=== PATIENT | male | born 1975 | race Caucasian/White ===

== ENCOUNTER 2019-09-06 12:52 | Outpatient (REF) | payer BC, SELFPAY ==
[2019-09-06 22:48] LABS: HCT 45.1 % (40.0-50.0); HGB 15.4 g/dL (13.5-17.5); Mean Corp. HGB Concentration 34.1 g/dL (32.0-36.0); Mean Corpuscular Hemoglobin 29.6 pg (27.0-33.0); Mean Corpuscular Volume 86.7 fL (80-95); Mean Platelet Volume 9.5 fL (8.0-11.0); Platelet Count 242 x1000/uL (130-400); RBC Distribution Width 13.4 % (11.8-14.1); White Blood Cell Count 4.18 k/cumm (4.4-10.8)
[2019-09-06 23:31] LABS: ALT 39 U/L (16-63); AST 25 U/L (15-37); Albumin 4.4 g/dL (3.4-5.0); Alkaline Phosphatase 80 U/L (46-116); Anion Gap 10.2 mmol/L (3-11); BUN 13 mg/dL (7-18); Bilirubin, Total 0.5 mg/dL (0.2-1.0); CO2 30.8 mmol/L (21.0-32.0); CREATININE 1.03 mg/dL (0.70-1.30); Calcium 9.3 mg/dL (8.5-10.1); Calculated LDL 112 mg/dL (<100); Chloride 100 mmol/L (98-107); Cholesterol 174 mg/dL (<200); Glucose 84 mg/dL (74-106); HDL Cholesterol 46 mg/dL (40-60); Potassium 4.4 mmol/L (3.5-5.1); Sodium 141 mmol/L (136-145); Total Protein 7.7 g/dL (6.4-8.2); Triglyceride 82 mg/dL (<150)
[2019-09-06 23:45] LABS: Uric Acid 8.2 mg/dL (3.5-7.2)
== END 2019-09-06 13:12 ==
LOC: NCHCN 12:52
PROVIDERS: PCP Internal Medicine; Visit Provider Family Medicine
DX: Z00.00 Encounter for general adult medical examination without abnormal findings (principal); M10.9 Gout, unspecified; N20.0 Calculus of kidney; Z13.220 Encounter for screening for lipoid disorders
CPT/HCPCS: 80053; 80061; 85027; 84550

== ENCOUNTER 2021-10-15 04:31 | Emergency (ER) | payer BC, SELFPAY ==
--- NOTE | 2021-10-15 04:30 | DI.CT_ITS ---
Exam(s) CT RENAL COLIC WO EXAM: CT RENAL COLIC WO CLINICAL HISTORY: right flank pain. TECHNIQUE: Imaging Protocol: Axial computed tomography images with coronal and sagittal reformatted images were created and reviewed. CONTRAST MATERIAL: Noncontrast COMPARISON: No exams were available for comparison FINDINGS: ABDOMEN: Lung Bases: Lungs normal where visualized. Small hiatal hernia. Liver: Moderate fatty infiltration.. No measurable mass. Gallbladder and biliary tract: No radiodense calculus or dilation. Pancreas: Normal density, no calcifications or inflammatory process. Spleen: Normal. Kidneys: Normal size, contour and axis. No radiodense stones or obstructive uropathy. No masses seen. Adrenal glands: No masses seen. Abdominal Aorta: Abdominal portion non-dilated. PELVIS: Bladder: 4 millimeter stone dependent portion of bladder. Symmetric distention, no gross wall thicke greg. Bowel: No obstruction or bowel wall thickening. Peritoneal cavity: No ascites, collection or mesenteric inflammatory response. Bones: Degenerative disc changes L5-S1. IMPRESSION: 4 millimeter stone in the urinary bladder. No additional renal or ureteral calculi. No hydronephros is. RADIATION DOSE DELIVERED: 1,255.39mGy.cm Total DLP DATA REPOSITORY: All CT scans at this facility are submitted to the National Radiology Data Registry (NRDR) Dose Index Registry (DIR) with the [employer] ([employer]). RADIATION OPTIMIZATION: All CT scans at this facility use at least one of these dose optimization te chniques: automated exposure control; mA and/or kV adjustment per patient size (includes targeted exa ms where dose is matched to clinical indication); or iterative reconstruction.
[2021-10-15 04:35] VITALS: BP 131/96; PULSE 73; RESP 14; TEMP 36.5; O2SAT 98
--- NOTE | 2021-10-15 04:45 | ED.GENADUL_ITS ---
Discharge Plan Disposition Patient Disposition: HOME Condition: Stable Discharge Details Clinical Impression: Acute flank pain Primary Care Provider: Cyrus Marshall ED Provider: Jaxon Hernandez Home Meds and New Rx's Prescriptions: New ondansetron 4 mg tablet,disintegrating 4 mg PO Q8H PRN (Reason: nausea and vomiting) Qty: 30 0RF Continued allopurinol 100 mg Tablet 100 mg PO DAILY 0RF Discharge Instructions Additional Instructions: You had a kidney stone that was already in the bladder and no other stones in the kidneys were seen You can take 600mg ibuprofen every 6 hours. You can take 1000mg tylenol every 6 hours but don't exceed 3000mg in a 24 hour period follow up with your primary care provider within 1 week if you feel more ill, have severe worsening pain, fevers or persistent vomit return to the emergency department Medical Decision Making 45 yo male who states he has a history of gout on allopurinol and remote history of kidney stone comes in with right lower back pain. HE states yesterday he felt well and went to bed feeling well without symptoms. He woke up with severe right lower back pain and had n/v. Denies any urinary symptoms such as dysuria or hematuria he could see. He arrives stable and states his pain has decreased but does come in waves. Denies chest pain, dyspnea, fevers, chills, abodmen pain. HE has no abdominal tenderness, no testicular pain or tenderness or swelling. He localizes the pain to the right lower back, no midline pain, no cva tenderness, no saddle anesthesia. Given acute onset of pain and n/v suspect kidney stone, will obtain ct renal colic to further evaluate. HAs no abdominal tenderness so doubt surgical pathology such as appendicitis. blood work unremarkable, ua with blood otherwise unremarkable. Awaiting vrad report, I believe there is a stone in the bladder. pt continues to feel well and has very mild 1/10 lower right back discomfort now. vrad confirms calculus is in the bladder, no other stones seen and he is now pain free. He is stable and appropriate for discharge. Offered urology referral but given the stone is in the bladder and he has no other stones on CT he declines and will f/u with his pcp which I feel is reasonable, return precautions given Differential Diagnosis Differential Diagnosis: kidney stone, pyelo, uti Imaging Data Radiologic Study: Attestation: I personally reviewed and interpreted this imaging study as follows: Imaging: CT Scan Radiologist's impression: IMPRESSION: 1. Non-obstructing 4 mm calculus in the urinary bladder. 2. No hydronephrosis or hydroureter. 3. No renal or ureteral calculi. Lab Data Lab results reviewed: Yes I reviewed the patient's lab results. HPI General Mode of arrival: ambulatory . Date/Time Provider Initiated Documentation: 10/15/21 04:33 . Limitations to Documentation: no limitations . Information obtained by: patient . History of Present Illness 45 year old M presents to the emergency department with the chief complaint of right flank pa in, described as severe, and is localized to the back and right. Patient reports no radiation. Patient started experiencing this hour(s) (2) and it has been intermittent. improves with No relieving factors improve symptom(s), No exacerbating factors reported . Patient notes nausea/vomiting. Patient did receive the following treatments prior to arrival, none Related Data Home Medications Medication Instructions Recorded Confirmed allopurinol 100 mg tablet 100 mg PO DAILY 10/15/21 10/15/21 ondansetron 4 mg disintegrating 4 mg PO Q8H PRN #30 tab 10/15/21 tablet Previous Rx's Medication Instructions Recorded ondansetron 4 mg disintegrating 4 mg PO Q8H PRN #30 tab 10/15/21 tablet Allergies Allergy/AdvReac Type Severity Reaction Status Date / Time No Known Allergies Allergy Unverified 10/15/21 04:43 General Stated Complaint: FlankPain RILEY: 3 Review of Systems All systems reviewed & are unremarkable except as noted in HPI and below Constitutional Constitutional: Denies chills, Denies fever(s) and Denies weakness Cardiovascular Cardiovascular: Denies chest pain and Denies dyspnea Respiratory Respiratory: Denies cough and Denies dyspnea Gastrointestinal Gastrointestinal: Denies abdominal pain Genitourinary Genitourinary: Denies dysuria Integumentary/Breasts Skin/Breast: Denies rash Neurologic Neurologic: Denies weakness PFSH All Active Problems (Updated 10/15/21 @ 05:42 by Jaxon Hernandez MD) Acute flank pain (Acute) Social History Smoking/Tobacco Use Status: Current-Occasional Tobacco Type: cigarettes Smoking risk assessment performed?: Yes Alcohol Intake: current Alcohol Intake frequency: a few times a month Drug use: Never Substance use type: does not use Details: Patient reports using nicotine gum. Do you feel safe at home: Yes Do you feel safe in your relationship?: Yes Exam Const General: no acute distress Orientation: alert HENMT Head: normal to inspection Ears: external ears normal General nose exam: external nose normal Mouth: moist mucous membranes Eyes General: appearance normal, both eyes and all related structures Neck Neck: normal visual inspection Resp Effort & Inspection: normal respiratory effort and able to speak in complete sentences Cardio Rate: regular rate GI Palpation: soft and nontender Back/Spine/Pelvis Back: no CVA tenderness Skin General skin exam: no rashes or lesions noted Neuro General: patient alert and patient oriented x3 Extrem General: normal to inspection Psych Mental Status: mental status grossly normal Course Vital Signs Vital signs: Vital Signs Temperature 36.5 C 10/15/21 04:35 Pulse 73 10/15/21 04:35 Respiratory Rate 14 10/15/21 04:35 Blood Pressure 131/96 H 10/15/21 04:35 Pulse Oximetry 98 10/15/21 04:35 Temperature 36.5 C 10/15/21 04:35 Temperature Source Skin 10/15/21 04:35 Pulse 73 10/15/21 04:35 Respiratory Rate 14 10/15/21 04:35 Respiratory Effort Non-Labored 10/15/21 04:39 Blood Pressure 131/96 H 10/15/21 04:35 Blood Pressure Position Sitting 10/15/21 04:35 Pulse Oximetry 98 10/15/21 04:35 Oxygen Delivery Method Room Air 10/15/21 04:35 Oxygen Flow Rate 0 10/15/21 04:35 Pain Level 4 10/15/21 04:39
[2021-10-15] MEDS: Normal Saline 1,000 ML 1000 ML IV (04:50)
[2021-10-15] MEDS: Ketorolac 15 MG/ML VIAL IVP (04:50)
[2021-10-15] MEDS: Ondansetron 4 MG/2 ML VIAL IVP (04:50)
[2021-10-15 04:51] LABS: Abs Immature Grans 0.01 10^3/uL (0.0-0.06); Absolute Basophil Count 0.05 10^3/uL (0.0-0.2); Absolute Eosinophil Count 0.13 10^3/uL (0.0-0.7); Absolute Lymphocyte Count 3.06 10^3/uL (1.2-3.4); Absolute Monocyte Count 0.44 10^3/uL (0.1-0.8); Absolute Neutrophil Count 3.68 10^3/uL (1.2-6.7); Basophils % 0.7; Eosinophils % 1.8; HCT 44.7 % (40.0-50.0); Immature Grans % 0.1; Lymphocytes % 41.5; MCH 29.9 pg (27.0-33.0); MCHC 33.6 % (32.0-36.0); MCV 89.2 fL (80-95); MPV 8.8 fL (8.0-11.0); Neutrophils % 49.9; Nucleated RBC 0 %; Platelet Count 274 10^3/uL (130-400); RBC 5.01 10^6/uL (4.36-5.78); RDW 12.3 % (11.8-14.1); RDW-SD 40.5 fL; WBC 7.37 10^3/uL (4.4-10.8)
[2021-10-15 05:09] LABS: ALT 38 U/L (16-63); AST 17 U/L (15-37); Albumin 4.2 g/dL (3.4-5.0); Alkaline Phosphatase 69 U/L (46-116); Anion Gap 10.3 mmol/L (3-11); BUN 17 mg/dL (7-18); Bilirubin, Total 0.5 mg/dL (0.2-1.0); CO2 25.7 mmol/L (21.0-32.0); CREATININE 1.1 mg/dL (0.70-1.30); Calcium 9.1 mg/dL (8.5-10.1); Chloride 105 mmol/L (98-107); Glucose 126 mg/dL (74-106); Lipase 76 U/L (73-393); Magnesium 2.1 mg/dL (1.8-2.4); Potassium 4.3 mmol/L (3.5-5.1); Sodium 141 mmol/L (136-145); Total Protein 7.6 g/dL (6.4-8.2)
[2021-10-15 05:26] LABS: Bilirubin Negative (Negative); Blood Large (Negative); Clarity Clear (Clear); Glucose Negative (Negative); Ketones Negative (Negative); Leukocyte Esterase Negative (Negative); Nitrite Negative (Negative); Specific Gravity >= 1.030 (1.005-1.025); Urobilinogen 0.2 EU/dL (Up TO 0.2)
[2021-10-15 05:35] LABS: Bacteria Few HPF (Negative); C & S Indicated? No; Casts Negative LPF (Negative); Crystals Negative HPF (Negative); Epithelial Cells Rare HPF (Negative); Mucus Moderate (Negative); RBC 20-50 HPF (0-2)
[2021-10-15 06:14] VITALS: BP 122/75; PULSE 65; RESP 14; TEMP 36.7; O2SAT 98
--- NOTE | 2021-10-15 06:25 | DI.VRAD_ITS ---
PROCEDURE INFORMATION: Exam: CT Abdomen And Pelvis Without Contrast Exam date and time: 10/15/2021 5:00 AM Age: 45 years old Clinical indication: Other: R flank; Patient HX: Sudden onset of severe right flank pain for 2 hours TECHNIQUE: Imaging protocol: Computed tomography of the abdomen and pelvis without contrast. Radiation optimization: All CT scans at this facility use at least one of these dose optimization techniques: automated exposure control; mA and/or kV adjustment per patient size (includes targeted exams where dose is matched to clinical indication); or iterative reconstruction. COMPARISON: No relevant prior studies available. FINDINGS: Lungs: There are minor dependent hypoventilatory changes in both lower lobes. Lung bases are otherwise clear. No pleural effusions. Liver: Unremarkable. Gallbladder and bile ducts: Unremarkable. No calcified gallstones. No intrahepatic or extrahepatic biliary ductal dilation. Pancreas: Unremarkable. Spleen: Unremarkable. The spleen is normal in size. Adrenal glands: Unremarkable. Kidneys and ureters: The kidneys are normal and symmetric in size, without hydronephrosis, calcifications, or contour-deforming masses. No calcifications are identified in the ureters, which are normal in caliber. Stomach and bowel: Unremarkable. No obstruction. No mucosal thickening. Appendix: A nondilated appendix is identified. Intraperitoneal space: Unremarkable. No ascites, fluid collection, or pneumoperitoneum. Retroperitoneal space: Unremarkable. No retroperitoneal collection or mass. Arteries: Minimal atherosclerotic vascular calcifications. Normal caliber abdominal aorta. Lymph nodes: No pathologically enlarged lymph nodes. Urinary bladder: There is a dependent 4 mm calculus in the urinary bladder (axial image 123, sagittal image 77). Reproductive: Mildly enlarged prostate gland. Bones/joints: Degenerative changes. No suspicious osseous lesions. Soft tissues: Small bilateral fat-containing inguinal hernias. Other findings: None. IMPRESSION: 1. Non-obstructing 4 mm calculus in the urinary bladder. 2. No hydronephrosis or hydroureter. 3. No renal or ureteral calculi. Dictated and Authenticated by: Cherie Bates MD. Ordering:GEOFF Coates MD
[2021-10-15 06:36] VITALS: BP 122/75; PULSE 65; RESP 14; TEMP 36.7; O2SAT 98
== END 2021-10-15 06:40 | disposition home or self-care (01) ==
PROVIDERS: Emergency Provider Emergency Medicine; PCP Internal Medicine
DX: R10.9 Unspecified abdominal pain (principal); M54.50 Low back pain, unspecified; Z87.442 Personal history of urinary calculi; R11.2 Nausea with vomiting, unspecified; N21.0 Calculus in bladder
CPT/HCPCS: 80053; 83690; 96361; 96374; 96375; 99284; 74176; 81003; 81015; 83735; 85025; J1885; J2405

== ENCOUNTER 2023-01-13 13:49 | Outpatient (REF) | payer BC, SELFPAY ==
[2023-01-13 15:37] LABS: ALT 35 U/L (16-63); AST 21 U/L (15-37); Albumin 4.5 g/dL (3.4-5.0); Alkaline Phosphatase 80 U/L (46-116); Anion Gap 7.8 mmol/L (3-11); BUN 16 mg/dL (7-18); Bilirubin, Total 0.6 mg/dL (0.2-1.0); CO2 30.2 mmol/L (21.0-32.0); Calcium 9.7 mg/dL (8.5-10.1); Calculated LDL 143 mg/dL (<100); Chloride 106 mmol/L (98-107); Cholesterol 212 mg/dL (<200); Estimated GFR 92.84 (mL/min/1.73m2); Glucose 100 mg/dL (74-106); HDL Cholesterol 54 mg/dL (40-60); Potassium 5.2 mmol/L (3.5-5.1); Sodium 144 mmol/L (136-145); Total Protein 7.6 g/dL (6.4-8.2); Triglyceride 79 mg/dL (<150)
[2023-01-13 16:01] LABS: Vitamin D 25 Total 25.2 ng/mL (30-100)
== END 2023-01-13 13:50 | disposition home or self-care (01) ==
LOC: NCHCN 13:49
PROVIDERS: PCP Internal Medicine; Visit Provider Family Medicine
DX: Z00.00 Encounter for general adult medical examination without abnormal findings (principal); E66.9 Obesity, unspecified; M10.9 Gout, unspecified; N20.0 Calculus of kidney
CPT/HCPCS: 80053; 80061; 82306

== ENCOUNTER 2023-11-11 13:41 | Outpatient (REF) | payer BC, SELFPAY ==
[2023-11-11 15:07] LABS: ALT 30 U/L (16-63); AST 17 U/L (15-37); Albumin 4.5 g/dL (3.4-5.0); Alkaline Phosphatase 74 U/L (46-116); Anion Gap 10.2 mmol/L (3-11); BUN 15 mg/dL (7-18); Bilirubin, Total 0.8 mg/dL (0.2-1.0); CO2 28.8 mmol/L (21.0-32.0); CREATININE 1.2 mg/dL (0.70-1.30); Calcium 9.6 mg/dL (8.5-10.1); Calculated LDL 130 mg/dL (<100); Chloride 107 mmol/L (98-107); Cholesterol 195 mg/dL (<200); Glucose 163 mg/dL (74-106); HDL Cholesterol 47 mg/dL (40-60); Potassium 4.9 mmol/L (3.5-5.1); Sodium 146 mmol/L (136-145); Total Protein 7.5 g/dL (6.4-8.2); Triglyceride 94 mg/dL (<150)
[2023-11-11 15:18] LABS: Vitamin D 25 Total 22.6 ng/mL (30-100)
[2023-11-11 15:27] LABS: Uric Acid 6.5 mg/dL (3.5-7.2)
== END 2023-11-11 13:42 | disposition home or self-care (01) ==
LOC: NCHCN 13:41
PROVIDERS: PCP Internal Medicine; Visit Provider Family Medicine
DX: Z00.00 Encounter for general adult medical examination without abnormal findings (principal); R03.0 Elevated blood-pressure reading, without diagnosis of hypertension; M10.9 Gout, unspecified
CPT/HCPCS: 80053; 80061; 82306; 84550

== ENCOUNTER 2023-11-24 18:40 | Emergency (ER) | payer BC, SELFPAY ==
[2023-11-24 18:42] VITALS: BP 173/103; PULSE 98; RESP 16; TEMP 36.5; O2SAT 99
[2023-11-24] MEDS: MORPHine 4 MG/ML SYR (19:13)
--- NOTE | 2023-11-24 19:15 | DI.RAD_ITS ---
Exam(s) XR HAND LT COMPLETE EXAM: XR HAND LT COMPLETE CLINICAL HISTORY: crush injury, multiple lacs. TECHNIQUE: 2D digital imaging was performed. COMPARISON: No exams were available for comparison FINDINGS: 3 views There is a displaced comminuted fracture of the proximal phalanx of the 4th-ring finger. There is no t appear to involve the proximal interphalangeal joint nor the MCP joint. There is also a comminuted fracture at the base of the middle phalanx of the 3rd-middle finger. Ellen ot exclude subtle involvement of the adjacent head of the proximal phalanx. Flexion at the DIP joint of the 3rd finger. This may indicate an element of ligament injury. No radiopaque foreign bodies. Some gas is seen in the soft tissues of the proximal 3rd finger. IMPRESSION: Fractures of the 3rd and 4th fingers as described above. No radiopaque foreign bodies. No osseous l esions. DATA REPOSITORY: RADIATION DOSE DELIVERED:
--- NOTE | 2023-11-24 19:28 | W.ED.GENAD ---
Discharge Plan Disposition Patient Disposition: Transfer-Acute Inpatient Care Specific Acute Inpt Facility: [facility] Condition: Fair Discharge Details Chief Complaint: Orthopedic Clinical Impression: Neurovascular injury, Crush injury of hand, Open fracture, Finger fracture, left, Complicated laceration of hand Primary Care Provider: Cyrus Marshall ED Provider: Vianey eTna Home Meds and New Rx's Prescriptions: No Action allopurinol 100 mg Tablet 100 mg PO DAILY HPI General Date/Time Provider Initiated Documentation: 11/24/23 19:28. Limitations to Documentation: no limitations. Information obtained by: patient, family and RN notes reviewed. History of Present Illness 48 year old M presents to the emergency department with the chief complaint of left hand injury, described as severe, Quality is described as burning and aching, and is localized to the left and upper extremity. Patient reports no radiation. Patient started experiencing this hour(s) (1) and it has been constant. Immobilization improves symptom(s), Patient notes no other symptoms.. Patient did receive the following treatments prior to arrival, none Related Data Home Medications Medication Instructions Recorded Confirmed allopurinol 100 mg tablet 100 mg PO DAILY 10/15/21 11/24/23 Allergies Allergy/AdvReac Type Severity Reaction Status Date / Time No Known Allergies Allergy Verified 11/24/23 18:46 General Stated Complaint: Orthopedic RILEY: 3 Review of Systems Constitutional Constitutional: Reports as per HPI, Denies chills, Denies fever(s) and Denies headache(s) ENT Ears, Nose, Mouth, and Throat: Denies headache(s) Cardiovascular Cardiovascular: Reports as per HPI Respiratory Respiratory: Reports as per HPI and Denies cough Musculoskeletal Musculoskeletal: Reports as per HPI Integumentary/Breasts Skin/Breast: Reports as per HPI Neurologic Neurologic: Reports as per HPI and Denies headache(s) Exam Const General: cooperative, healthy appearing, no acute distress, well developed and well groomed Nutritional Appearance: average body habitus and well nourished Orientation: alert and awake Resp Effort & Inspection: normal respiratory effort, able to speak in complete sentences and no respiratory distress Cardio Rate: regular rate Rhythm: regular rhythm Skin Trauma: laceration (multiple large, complex lacerations left hand) Neuro General: patient alert and patient awake Cognition: normal cognition Speech: speech normal Gait: normal gait Motor: muscle tone normal throughout Extrem Left upper extremity: elbow/forearm Details: normal to inspection, wrist Details: normal to inspection, normal ROM and radial pulse present; no tenderness, no swelling and no lacerations and hand Details: neuromotor exam abnormal (unable to move ring or middle finger); abnormal to inspection, abormal capillary refill (decreased time ring finger) and neuromotor exam abnormal (no sensation distal to PIP middle finger); ROM limited and abnormal capillary refill (slow on left ring finger) Course Vital Signs Vital signs: Vital Signs Temperature 36.5 C 11/24/23 18:42 Pulse 98 H 11/24/23 18:42 Respiratory Rate 16 11/24/23 18:42 Blood Pressure 173/103 H 11/24/23 18:42 Pulse Oximetry 99 11/24/23 18:42 Temperature 36.5 C 11/24/23 18:42 Temperature Source Temporal Artery Scan 11/24/23 18:42 Pulse 98 H 11/24/23 18:42 Respiratory Rate 16 11/24/23 18:42 Respiratory Effort Normal 11/24/23 18:45 Blood Pressure 173/103 H 11/24/23 18:42 Pulse Oximetry 99 11/24/23 18:42 Oxygen Delivery Method Room Air 11/24/23 18:42 Oxygen Flow Rate 0 11/24/23 18:42 Pain Level 7 11/24/23 19:13 Medical Decision Making Patient is an otherwise healthy [id number] 48-year-old male presenting today with chief complaint of laceration and trauma to the left hand. He reports that about 1 hour prior to arrival he was splitting wood when he caught his left hand in the wood splitter. Denies other injury at the time of the incident. Believes that his tetanus is up-to-date. Endorses large lacerations, numbness, particularly at the left middle finger. He has not taken anything for his discomfort, drove himself here. Covered with bandage. On exam, patient appears anxious and uncomfortable. He has notable deformities to the middle and ring finger of the left hand with large lacerations that extend onto the fifth digit as well, particularly in the webspace. Notable deformities with rotational injuries to the middle and ring finger of the left hand. Of note, the palmar side of the left ring finger appears slightly dusky with delayed capillary refill. The middle finger is significant for no sensation distal to the PIP joint. He has 2+ distal pulses of the radial pulse. Several large irregular lacerations that do expose and interrupt tendinous attachments, bone is visible, particularly on the middle finger. Unable to move the middle or ring finger. With the patient significant pain, digital blocks were performed by myself after initial assessment using 1% lidocaine plain. This was infiltrated into the base of each digit. A total of 10 cc was used with good success. Patient also received morphine prior to this. Will obtain x-ray. Patient will need to undergo surgical management of these wounds. Concerned with the potential neurovascular involvement of the middle and ring finger on this hand. Reviewed patient's chart, I do not believe that his tetanus is in fact up-to-date, this is updated here. Also gave patient dose cefazolin. Will keep him n.p.o., he reports that he has not had anything to eat as of yet today. I spoke with Dr. Castillo who advised that patient will need hand specialist, recommends sending patient to [facility] for continued care. Consulted with plastics who is [email or web address] with patient's permission, sent images as well as x-rays to their facility and hand specialist on-call. They advised ED to ED transfer with plan for surgical management of his significant wounds. Discussed this plan with the patient who is in agreement. Patient to be transferred via EMS. Patient transferred to [facility] for further management of his hand wounds via EMS. Another 4 mg of morphine administered prior to his departure. Patient has remained NPO. In total, has received IV antibiotics, 1 L fluids, tetanus, 10 mg of lidocaine and digital block. Risk and benefit of transfer discussed with patient and his and they are in agreement with this plan. Quality:SDOH Health Related Social Needs: No Data to Display [facility] All Active Problems (Updated 11/25/23 @ 00:26 by NENA Rosenbaum) Complicated laceration of hand (Acute) Finger fracture, left (Acute) Open fracture (Acute) Crush injury of hand (Acute) Neurovascular injury (Acute) Social History Smoking/Tobacco Use Status: Current-Occasional Tobacco Type: cigarettes Smoking risk assessment performed?: Yes Alcohol Intake: current Alcohol Intake frequency: a few times a month Drug use: Never Substance use type: does not use Details: Patient reports using nicotine gum. Do you feel safe at home: Yes Do you feel safe in your relationship?: Yes
[2023-11-24] MEDS: ceFAZolin 2 GM/50 ML BAG IVPB (19:47)
[2023-11-24] MEDS: Normal Saline 1,000 ML 1000 ML IV (19:47)
[2023-11-24 19:50] VITALS: BP 161/101; PULSE 81; RESP 16; O2SAT 98
--- NOTE | 2023-11-24 19:59 | NUR.NOTE ---
[facility] accessed for tetanus status.Nursing Note:
--- NOTE | 2023-11-24 21:00 | DI.VRAD_ITS ---
PROCEDURE INFORMATION: Exam: XR Left Hand Exam date and time: 11/24/2023 7:36 PM Age: 48 years old Clinical indication: Wood splitter / crush injury; Blunt trauma left hand; Multiple lacs TECHNIQUE: Imaging protocol: Radiologic exam of the left hand. Views: 3 or more views. COMPARISON: No relevant prior studies available. FINDINGS: Bones/joints: Closed, acute, comminuted fracture of the distal shaft of the left 4th proximal phalanx. Closed, acute, fracture involving the base of the left 3rd middle phalanx (and possibly the head of the adjacent left 3rd proximal phalanx). No dislocation. Soft tissues: No soft tissue radiopaque foreign body. Soft tissue edema of the left 3rd and 4th digits. IMPRESSION: 1. Closed, acute, comminuted fracture of the distal shaft of the left 4th proximal phalanx. Adjacent soft tissue edema. 2. Closed, acute, fracture involving the base of the left 3rd middle phalanx (and possibly the head of the adjacent left 3rd proximal phalanx). Adjacent soft tissue edema. 3. No soft tissue radiopaque foreign body. Dictated and Authenticated by: Joel Mejia MD. Ordering:RADHA Winters MD
[2023-11-24] MEDS: MORPHine 4 MG/ML SYR IVP (22:02)
[2023-11-24 22:11] VITALS: BP 140/80; PULSE 88; RESP 16; TEMP 36.8; O2SAT 98
== END 2023-11-24 22:10 | disposition short-term general hospital (02) ==
PROVIDERS: Emergency Provider Physician Assistant; PCP Internal Medicine
DX: S64.493A Injury of digital nerve of left middle finger, initial encounter (principal); S61.412A Laceration without foreign body of left hand, initial encounter; S62.613B Displaced fracture of proximal phalanx of left middle finger, initial encounter for open fracture; S62.615B Displaced fracture of proximal phalanx of left ring finger, initial encounter for open fracture; S67.22XA Crushing injury of left hand, initial encounter; W31.89XA Contact with other specified machinery, initial encounter; Y93.89 Activity, other specified; Y92.89 Other specified places as the place of occurrence of the external cause
CPT/HCPCS: 36415; 90471; 90715; 96365; 96375; 99285; 73130; J0690; J2270

== ENCOUNTER 2024-11-07 13:18 | Outpatient (REF) | payer BC, SELFPAY ==
[2024-11-07 15:45] LABS: ALT 34 U/L (16-63); AST 17 U/L (15-37); Albumin 4.4 g/dL (3.4-5.0); Alkaline Phosphatase 88 U/L (46-116); Anion Gap 8.1 mmol/L (3-11); BUN 11 mg/dL (7-18); Bilirubin, Total 0.4 mg/dL (0.2-1.0); CO2 29.9 mmol/L (21.0-32.0); Calcium 9.6 mg/dL (8.5-10.1); Calculated LDL 117 mg/dL (<100); Chloride 105 mmol/L (98-107); Cholesterol 190 mg/dL (<200); Estimated GFR 92.26 (mL/min/1.73m2); Glucose 97 mg/dL (74-106); HDL Cholesterol 45 mg/dL (>or=40); Potassium 4.2 mmol/L (3.5-5.1); Sodium 143 mmol/L (136-145); Total Protein 7.5 g/dL (6.4-8.2); Triglyceride 144 mg/dL (<150); Vitamin D 25 Total 29 ng/mL (30-100)
[2024-11-07 16:59] LABS: Hemoglobin A1C 5.6 % (<5.7)
== END 2024-11-07 13:19 | disposition home or self-care (01) ==
LOC: NCHCN 13:18
PROVIDERS: PCP Internal Medicine; Visit Provider Family Medicine
DX: E55.9 Vitamin D deficiency, unspecified (principal); E66.9 Obesity, unspecified; R03.0 Elevated blood-pressure reading, without diagnosis of hypertension; Z00.00 Encounter for general adult medical examination without abnormal findings
CPT/HCPCS: 80053; 80061; 82306; 83036